=== PATIENT | female | born 1970 | race Caucasian/White ===

== ENCOUNTER → 2020-06-01 10:28 | Outpatient (CLI) | payer MEDICARE, SELFPAY ==
[2020-06-01 12:34] LABS: Free T4, Direct Thyroxine 0.94 ng/dL (0.78-2.19)
[2020-06-01 12:48] LABS: Thyroid Stimulating Hormone 0.762 uIU/mL (0.47-4.68)
== END ==
PROVIDERS: Family Provider Nurse Practitioner Family; Referring Provider Nurse Practitioner Psychiatric/Mental Health; Visit Provider Nurse Practitioner Psychiatric/Mental Health
DX: Z51.81 Encounter for therapeutic drug level monitoring (principal); F31.81 Bipolar II disorder; R53.83 Other fatigue
CPT/HCPCS: 36415; 84439; 84443

== ENCOUNTER → 2022-07-21 08:09 | Outpatient (CLI) | payer MEDICARE, SELFPAY ==
[2022-07-21 10:18] LABS: Alanine Aminotransferase 15 IU/L (<35); Albumin 4.2 g/dL (3.5-5.0); Albumin Globulin Ratio 1.4 (1.0-2.8); Alkaline Phosphatase 88 U/L (38-126); Aspartate Aminotransferase 15 IU/L (14-36); BUN Creatinine Ratio 19.7 (6-22); Bilirubin Total 0.2 mg/dL (0.2-1.3); Blood Urea Nitrogen 13 mg/dL (7-17); Calcium 9.4 mg/dL (8.4-10.2); Carbon Dioxide 28 mmol/L (22-32); Chloride 108 mmol/L (98-107); Estimated Glomerular Filt Rate > 60 mL/min (>60); Globulin 2.9 g/dL (1.7-4.1); Glucose 83 mg/dL (70-100); HEMOLYSIS < 15 (0-50); Sodium 143 mmol/L (137-145); Total Protein 7.1 g/dL (6.3-8.2)
[2022-07-21 10:35] LABS: Free T4, Direct Thyroxine 0.92 ng/dL (0.78-2.19)
[2022-07-21 10:49] LABS: Thyroid Stimulating Hormone 0.689 uIU/mL (0.47-4.68)
[2022-07-24 16:40] LABS: Lamotrigine Lamictal 4.5 ug/mL (2.0-20.0)
== END ==
PROVIDERS: Family Provider Nurse Practitioner Family; Referring Provider Psychiatry & Neurology Psychiatry; Visit Provider Psychiatry & Neurology Psychiatry
DX: Z79.899 Other long term (current) drug therapy (principal); F31.81 Bipolar II disorder
CPT/HCPCS: 36415; 80053; 80175; 84439; 84443

== ENCOUNTER → 2023-01-19 08:12 | Outpatient (CLI) | payer MEDICARE, SELFPAY ==
[2023-01-22 14:01] LABS: Lamotrigine Lamictal 4.8 ug/mL (2.0-20.0)
== END ==
PROVIDERS: Family Provider Nurse Practitioner Family; Referring Provider Psychiatry & Neurology Psychiatry; Visit Provider Psychiatry & Neurology Psychiatry
DX: F31.81 Bipolar II disorder (principal); F41.1 Generalized anxiety disorder; F41.0 Panic disorder [episodic paroxysmal anxiety]; Z79.899 Other long term (current) drug therapy
CPT/HCPCS: 36415; 80175; 99214

== ENCOUNTER → 2023-06-23 08:41 | Outpatient (CLI) | payer MEDICARE, SELFPAY ==
[2023-06-25 12:25] LABS: Lamotrigine Lamictal 6.4 ug/mL (2.0-20.0)
== END ==
PROVIDERS: Family Provider Nurse Practitioner Family; Referring Provider Psychiatry & Neurology Psychiatry; Visit Provider Psychiatry & Neurology Psychiatry
DX: F31.9 Bipolar disorder, unspecified (principal); Z79.899 Other long term (current) drug therapy
CPT/HCPCS: 36415; 80175